=== PATIENT | female | born 1985 | race Caucasian/White ===

== ENCOUNTER 2018-08-09 19:21 | Observation (INO) | payer MEDICAID ==
[~2018-08-09] VITALS: Ht 162.6 cm; Wt 92.3 kg
[2018-08-09] MEDS ORDERED: SYNTHROID25 MCG PO (19:32)
[2018-08-09] MEDS ORDERED: PROZAC40 MG PO (19:33)
[2018-08-09] MEDS ORDERED: PRAVACHOL20 MG PO (19:33)
[2018-08-09] MEDS ORDERED: POLY HIST FORTE PO (19:33)
[2018-08-09] MEDS ORDERED: PERCOCET 5-3251 TAB PO (19:34)
[2018-08-09] MEDS ORDERED: PHENERGAN12.5 MG RC (19:34)
[2018-08-09] MEDS ORDERED: AMOXICILLIN875 MG PO (19:34)
[2018-08-09] MEDS ORDERED: BACLOFEN20 M1 PO (19:35)
[2018-08-09] MEDS ORDERED: VITAMIN D2000 UNIT PO (19:35)
[2018-08-09] MEDS ORDERED: AMBIEN CR 6.26.25 MG PO (19:35)
[2018-08-09] MEDS ORDERED: NEURONTIN 300300 MG PO (19:36)
[2018-08-09] MEDS ORDERED: SEROQUEL50 MG PO (19:36)
[2018-08-09 20:12] LABS: BASOPHILS 0.1 % (0-2); EOSINOPHILS 2.5 % (0-7); HEMATOCRIT 42.5 % (36.0-48.0); HEMOGLOBIN 14.2 g/dL (12-16); IMMATURE GRANULOCYTES 0.2 % (0-5); LYMPHOCYTES 7.5 % (15-50); MCHC 33.4 g/dL (31.0-37.0); MCV 86.9 fL (80.0-100.0); MEAN PLATELET VOLUME 9.2 fL (7.4-10.4); MONOCYTES 5.9 % (2-11); NEUTROPHILS 83.8 % (40-80); PLATELET COUNT 348 10x3/uL (130-400); RBC 4.89 10x6/uL (4.00-5.40); RDW 14.4 % (11.5-14.5); WBC 16.3 10x3/uL (4.8-10.8)
[2018-08-09 20:20] LABS: APPEARANCE CLEAR (CLEAR); COLOR YELLOW (YELLOW)
[2018-08-09 20:21] LABS: BILIRUBIN NEGATIVE (NEGATIVE); GLUCOSE NEGATIVE (NEGATIVE); KETONE NEGATIVE (NEGATIVE); NITRITE NEGATIVE (NEGATIVE); PROTEIN TRACE mg/dL (NEGATIVE); UROBILINOGEN NORMAL (NORMAL)
[2018-08-09 20:23] LABS: BACTERIA FEW /hpf (NONE SEEN); RED CELLS - URINE 0-5 /hpf (0-5); WHITE CELLS - URINE OCC /hpf (0-5)
[2018-08-09 20:26] LABS: ALBUMIN 3.6 g/dL (3.4-5.0); ALKALINE PHOSPHATASE 132 U/L (46-116); ALT (SGPT) 40 U/L (10-68); AMYLASE - SERUM 41 U/L (25-115); CALC OSMOLALITY 275 mosm/kg (275-300); CALCIUM 8.8 mg/dL (8.5-10.1); CARBON DIOXIDE 23.1 mmol/L (21.0-32.0); CHLORIDE - SERUM 103 mmol/L (98-107); CREATININE - SERUM 0.7 mg/dL (0.6-1.3); GLUCOSE 98 mg/dL (74-106); LIPASE 129 U/L (73-393); POTASSIUM - SERUM 3.5 mmol/L (3.5-5.1); PROTEIN - SERUM 7.7 g/dL (6.4-8.2); SODIUM 138 mmol/L (136-145); UREA NITROGEN 13 mg/dL (7-18); eGFR NON AFRICAN AMERICAN > 90 mL/min (90-120)
[2018-08-10 01:22] VITALS: BP 127/91; BMI 35.4
--- NOTE | 2018-08-10 01:24 | NUR ---
PT TO THE FLOOR VIA WHEELCHAIR. PT STATES FEELING A LITTLE BETTER AND THAT SHE HAS A DISABLED CHILD SHE WOULD LIKE TO GET HOME TO. PT HOPING SHE CAN HAVE HER EGD DONE SOONER RATHER THEN LATER. PT STATES NO OTHER NEEDS AT THIS TIME, CALL LIGHT WITHIN REACH AND BED IN LOWEST POSITION.
--- NOTE | 2018-08-10 01:41 | NUR ---
I have reviewed this patient and I concur with the Shift Assessment completed by the Licensed Practical Nurse today this shift.
--- NOTE | 2018-08-10 07:20 | NUR ---
PT IS AWAKE AND ORIENTED. QUESTIONS WHEN THE DOCTOR WILL BE HERE. PT HAS BAD HABBIT OF UNDOING HER OWN IV DESPITE BEING EDUCATED TO NOT DO SO. OTHERWISE PLESANT. CL IN REACH, SRX2. NO COMPLAINTS/CONCERNS AT THIS TIME.
[2018-08-10 08:53] VITALS: BP 84/43
[2018-08-10 11:48] VITALS: Ht 162.6 cm; Wt 92.3 kg
--- NOTE | 2018-08-10 13:03 | NUR ---
I have reviewed this patient and I concur with the Shift Assessment completed by the Licensed Practical Nurse today this shift.
[2018-08-10 13:11] VITALS: BP 119/83
--- NOTE | 2018-08-10 14:29 | NUR ---
PTREFUSED SCDS. PT IS UP AD ALEK WITHOUT DIFFICULTY.
[2018-08-10 16:45] VITALS: BP 100/51
--- NOTE | 2018-08-10 18:05 | NUR ---
PT ASLEEP, DID NOT WAKE I ENTERED. DID NOT FURTHER DISTURB AT THIS TIME. PT HAS BEEN ANXIOUS AND WAITING FOR STOOL RESULTS (NOT YET IN). STATES SHE HASN'T SLEPT WELL AND NEEDS TO GET MORE REST, IS HOPING NIGHT TIME WILL ASSIST.
--- NOTE | 2018-08-10 19:35 | NUR ---
EVENING ROUNDS COMPLETED. REPORT RECEIVED. PT LYING IN BED WITH EYES OPEN, RR EVEN AND UNLABORED. PT ANSWERS QUESTIONS APPROPRIATELY. NO S/S OF DISTRESS. INTRODUCED SELF TO PT. PT DENIES FURTHER NEEDS AT THIS TIME. BED IN LOW POSITION. CALL LIGHT IN REACH. WILL CTM.
[2018-08-10 20:00] VITALS: BP 128/53
--- NOTE | 2018-08-10 21:44 | NUR ---
ADMINISTERED ORDERED ANALGESIC FOR PT COMPLAINTS OF PAIN IN BACK AND ABDOMEN. PT STATES PAIN OF A 7 ON A SCALE OF 0-10.
--- NOTE | 2018-08-11 00:19 | NUR ---
I have reviewed this patient and I concur with the Shift Assessment completed by the Licensed Practical Nurse today this shift.
[2018-08-11 00:30] VITALS: BP 130/62
[2018-08-11 03:52] LABS: BASOPHILS 0.1 % (0-2); EOSINOPHILS 11.4 % (0-7); HEMATOCRIT 40.1 % (36.0-48.0); IMMATURE GRANULOCYTES 0.1 % (0-5); LYMPHOCYTES 33.3 % (15-50); MCH 28.8 pg (26.0-34.0); MCHC 32.4 g/dL (31.0-37.0); MCV 88.7 fL (80.0-100.0); MEAN PLATELET VOLUME 9.3 fL (7.4-10.4); NEUTROPHILS 44.1 % (40-80); PLATELET COUNT 303 10x3/uL (130-400); RBC 4.52 10x6/uL (4.00-5.40); RDW 14.6 % (11.5-14.5); WBC 7.8 10x3/uL (4.8-10.8)
[2018-08-11 04:06] LABS: ALBUMIN 3.2 g/dL (3.4-5.0); ALKALINE PHOSPHATASE 114 U/L (46-116); ALT (SGPT) 41 U/L (10-68); CALC OSMOLALITY 285 mosm/kg (275-300); CALCIUM 8.4 mg/dL (8.5-10.1); CARBON DIOXIDE 26.4 mmol/L (21.0-32.0); CHLORIDE - SERUM 107 mmol/L (98-107); CREATININE - SERUM 0.7 mg/dL (0.6-1.3); GLUCOSE 103 mg/dL (74-106); MAGNESIUM - SERUM 2.3 mg/dL (1.8-2.4); PROTEIN - SERUM 6.8 g/dL (6.4-8.2); SODIUM 143 mmol/L (136-145); UREA NITROGEN 14 mg/dL (7-18); eGFR NON AFRICAN AMERICAN > 90 mL/min (90-120)
[2018-08-11 04:07] LABS: POTASSIUM - SERUM 4.2 mmol/L (3.5-5.1)
[2018-08-11 04:30] VITALS: BP 123/58
--- NOTE | 2018-08-11 07:01 | NUR ---
PT AWAKE/ALERT/ORIENTED. STATES SHE SLEPT BETTER LAST NIGHT AND ISNT FEELING TOO BAD THIS MORNING. NO OTHER COMPLAINTS/CONCERNS/QUESTIONS OR COMMENTS AT THIS TIME. CL SWETHA, SRX2.
[2018-08-11 08:07] VITALS: BP 138/75
[2018-08-11] MEDS ORDERED: LEVOFLOXACIN500 MG PO (10:09)
[2018-08-11] MEDS ORDERED: FLAGYL500 MG PO (10:09)
--- NOTE | 2018-08-11 11:38 | NUR ---
PT AMBULATED OUT, OFFERED WHEELCAHIR, PT REFUSED STATING SHE WANTS TO HURRY UP AND LEAVE. NO COMPLAINTS OR CONCERNS.
--- NOTE | 2018-08-11 15:08 | NUR ---
I have reviewed this patient and I concur with the Shift Assessment completed by the Licensed Practical Nurse today this shift.
--- NOTE | 2018-08-12 07:44 | MORECARE ---
CASE MANAGEMENT DISCHARGE SUMMARY PATIENT: WES LOWE UNIT: [id number] ADM DATE: 08/09/18 AGE: 32 : 81 SEX: F ROOM/BED: D.2102 AUTHOR: DONALD JOHNSON PHYSICIAN: REFERRING PHYSICIAN: HENRY ROBERTO MD DATE OF SERVICE: 08/12/18 Discharge Plan Patient Name: WES LOWE Facility: [facility]:[place] : 1985 Planned Disposition: Home Anticipated Discharge Date: 08/11/18 Discharge Date: 08/11/2018 Expected LOS: 2 Initial Reviewer: [email or web address] Initial Review Date: 08/12/2018 Generated: 08/12/18 8:44 am Patient Name: WES LOWE Page [id number] at 0744 All edits/amendments must be made on the electronic document DICTATION DATE: 08/12/1844 JUSTICE PROFESSOR: DERIK 08/12/18 0744 RPT#: [id number] DC DATE:08/11/18 STATUS: DIS IN [facility] [address] [place] [address] END OF REPORT
== END 2018-08-11 11:38 | disposition home or self-care (01) ==
LOC: D.ER 19:21 → D.M2 23:42 → OBSVTIME 23:42 → D.M2 08-10 00:18
PROVIDERS: Emergency Medicine; Family Medicine; ADMIT Emergency Medicine; ATTEND Emergency Medicine
DX: K52.9 Noninfective gastroenteritis and colitis, unspecified (principal); E03.9 Hypothyroidism, unspecified; K21.9 Gastro-esophageal reflux disease without esophagitis; Z72.0 Tobacco use; F12.90 Cannabis use, unspecified, uncomplicated; K57.90 Diverticulosis of intestine, part unspecified, without perforation or abscess without bleeding; Z98.84 Bariatric surgery status

== ENCOUNTER 2018-12-08 21:28 | Inpatient (IN) | payer MEDICAID ==
[~2018-12-08] VITALS: Ht 162.6 cm; Wt 103.4 kg
[~2018-12-08 21:28] MED LIST: AMBIEN CR 6.26.25 MG PO; AMOXICILLIN875 MG PO; BACLOFEN20 M1 PO; FLAGYL500 MG PO; LEVOFLOXACIN500 MG PO; NEURONTIN 300300 MG PO; PERCOCET 5-3251 TAB PO; PHENERGAN12.5 MG RC; POLY HIST FORTE PO; PRAVACHOL20 MG PO; PROZAC40 MG PO; SEROQUEL50 MG PO; SYNTHROID25 MCG PO; VITAMIN D2000 UNIT PO
[2018-12-08 22:03] LABS: HEMOGLOBIN 14.3 g/dL (12-16); LYMPHOCYTES 8.8 % (15-50); MCH 27.6 pg (26.0-34.0); MCHC 32.5 g/dL (31.0-37.0); MCV 84.8 fL (80.0-100.0); MEAN PLATELET VOLUME 9.1 fL (7.4-10.4); NEUTROPHILS 82.5 % (40-80); RBC 5.19 10x6/uL (4.00-5.40); RDW 14.7 % (11.5-14.5); WBC 19.3 10x3/uL (4.8-10.8)
[2018-12-08 22:04] LABS: PLATELET COUNT 375 10x3/uL (130-400)
[2018-12-08 22:04] LABS: APPEARANCE CLOUDY (CLEAR); BILIRUBIN NEGATIVE (NEGATIVE); COLOR DK YELLOW (YELLOW); GLUCOSE NEGATIVE (NEGATIVE); KETONE NEGATIVE (NEGATIVE); NITRITE NEGATIVE (NEGATIVE); PROTEIN 2+ mg/dL (NEGATIVE); UROBILINOGEN NORMAL (NORMAL)
[2018-12-08 22:05] LABS: BACTERIA MODERATE /hpf (NONE SEEN); RED CELLS - URINE 0-5 /hpf (0-5); WHITE CELLS - URINE 0-5 /hpf (0-5)
[2018-12-08 22:06] LABS: HCG URINE NEGATIVE (NEGATIVE)
[2018-12-08 22:11] LABS: ALBUMIN 3.5 g/dL (3.4-5.0); ALKALINE PHOSPHATASE 147 U/L (46-116); ALT (SGPT) 19 U/L (10-68); BILIRUBIN - TOTAL 0.31 mg/dL (0.2-1.3); CALC OSMOLALITY 276 mosm/kg (275-300); CALCIUM 8.8 mg/dL (8.5-10.1); CARBON DIOXIDE 25.3 mmol/L (21.0-32.0); CHLORIDE - SERUM 102 mmol/L (98-107); CREATININE - SERUM 0.9 mg/dL (0.6-1.3); GLUCOSE 134 mg/dL (74-106); POTASSIUM - SERUM 3.5 mmol/L (3.5-5.1); PROTEIN - SERUM 7.8 g/dL (6.4-8.2); SODIUM 137 mmol/L (136-145); UREA NITROGEN 15 mg/dL (7-18); eGFR NON AFRICAN AMERICAN 75 mL/min (90-120)
[2018-12-08 22:14] LABS: AMYLASE - SERUM 33 U/L (25-115); LIPASE 95 U/L (73-393); TROPONIN-I < 0.017 ng/mL (0.000-0.060)
[2018-12-09] MEDS ORDERED: ALBUTEROL SULF8.5 GM INH (01:54)
[2018-12-09] MEDS ORDERED: PHENERGAN25 M1 PO (01:57)
--- NOTE | 2018-12-09 02:00 | NUR ---
RECEIVED REPORT FROM ER, PT ARRIVED VIA BED, A&O X4, MEDS AND HISTORY COMPLETE, PLACED ON TELEMTRY-SR, DENIES ANY NEEDS, BED IS LOW, SRX1, CALL LIGHT IN REACH, WILL CONTINUE PLAN OF CARE
--- NOTE | 2018-12-09 02:36 | NUR ---
ADMIT TO ROOM 2129 FROM ER. ALERT/ORIENTED. IV ABT X 2 COMPLETING UPON ARRIVAL TO FLOOR. ADMISSION ASSESSMENT AND HISTORY COMPLETED. HOME MEDS REVIEWED AND UPDATED. PLAN OF CARE INITIATED AT THIS TIME.
[2018-12-09 02:39] VITALS: BP 130/82; BMI 39.2
[2018-12-09 04:15] VITALS: BP 103/46
--- NOTE | 2018-12-09 06:50 | NUR ---
I have reviewed this patient and I concur with the Shift Assessment completed by the Licensed Practical Nurse today this shift.
--- NOTE | 2018-12-09 07:04 | NUR ---
PT RESTING PEACEFULLY, BREATHS EVEN, REGULAR, AND UNLABORED. NO SIGNS OR SYMPTOMS OF ACUTE DISTRESS NOTED AT THIS TIME. DID NOT FURTHER DISTURB AT THIS TIME. NO FAMILY AT BEDSIDE. CL IN REACH, SRX2.
[2018-12-09 08:14] VITALS: BP 107/53
[2018-12-09 11:17] VITALS: BP 87/43
--- NOTE | 2018-12-09 11:29 | NUR ---
PT B/P TRENDING DOWN ALL DAY, TOOK MANUAL (80/50). GIVING 500ML BOLUS PER [employer] ORDERS.
--- NOTE | 2018-12-09 12:02 | NUR ---
RATIONALE FOR SCD'S EXPLAINED. REFUSED SCD'S
[2018-12-09 12:54] LABS: INR 1.09 (0.85-1.17); PROTIME 13.6 SECONDS (11.6-15.0)
[2018-12-09 13:24] LABS: APTT 32.2 SECONDS (22.8-39.4)
[2018-12-09 13:46] VITALS: Ht 162.6 cm; Wt 103.4 kg
[2018-12-09 15:23] VITALS: BP 100/58
--- NOTE | 2018-12-09 19:00 | NUR ---
EVENING ROUNDS COMPLETE, PT SITTING UP IN BED, NO SIGNS OF DISTRESS. VSS, PT DENIES ANY PAIN AT THIS TIME. AAO X4. CL IN REACH, BED IN LOWEST POSITION. CONT WITH POC.
[2018-12-09 20:00] VITALS: BP 128/77
[2018-12-10] VITALS: BP 109/69
[2018-12-10 04:00] VITALS: BP 101/52
[2018-12-10 06:25] LABS: BASOPHILS 0.2 % (0-2); EOSINOPHILS 4.4 % (0-7); IMMATURE GRANULOCYTES 0.2 % (0-5); LYMPHOCYTES 28.1 % (15-50); MCH 26.9 pg (26.0-34.0); MCHC 31.9 g/dL (31.0-37.0); MCV 84.4 fL (80.0-100.0); MEAN PLATELET VOLUME 9.4 fL (7.4-10.4); MONOCYTES 12.2 % (2-11); NEUTROPHILS 54.9 % (40-80); RDW 15.6 % (11.5-14.5)
[2018-12-10 06:29] LABS: HEMOGLOBIN 10.2 g/dL (12-16); PLATELET COUNT 249 10x3/uL (130-400); RBC 3.79 10x6/uL (4.00-5.40); WBC 6.1 10x3/uL (4.8-10.8)
[2018-12-10 07:05] LABS: ALKALINE PHOSPHATASE 95 U/L (46-116); ALT (SGPT) 15 U/L (10-68); CALCIUM 7.3 mg/dL (8.5-10.1); CARBON DIOXIDE 25.7 mmol/L (21.0-32.0); CHLORIDE - SERUM 110 mmol/L (98-107); GLUCOSE 102 mg/dL (74-106); MAGNESIUM - SERUM 1.8 mg/dL (1.8-2.4); PHOSPHOROUS 2.8 mg/dL (2.5-4.9); POTASSIUM - SERUM 3.9 mmol/L (3.5-5.1); SODIUM 142 mmol/L (136-145)
[2018-12-10 07:08] LABS: CALC OSMOLALITY 280 mosm/kg (275-300); CREATININE - SERUM 0.6 mg/dL (0.6-1.3); UREA NITROGEN 6 mg/dL (7-18); eGFR NON AFRICAN AMERICAN > 90 mL/min (90-120)
[2018-12-10 07:09] LABS: ALBUMIN 2.2 g/dL (3.4-5.0); PROTEIN - SERUM 4.9 g/dL (6.4-8.2)
--- NOTE | 2018-12-10 07:51 | NUR ---
RECIEVED REPORT. RESTING IN BED WITH EYES CLOSED. RESPIRATIONS EVEN AND REGULAR. NO SIGNS OF DISTRESS. SINUS RHYTHM ON TELEMETRY. CONTINUE PLAN OF CARE AND SAFETY PRECAUTIONS.
[2018-12-10 08:39] VITALS: BP 103/54
[2018-12-10 11:34] VITALS: BP 112/59
[2018-12-10 15:42] VITALS: BP 148/86
--- NOTE | 2018-12-10 18:55 | NUR ---
EVENING ROUNDS COMPLETE, PT LAYING IN BED, NO SIGNS OF DISTRESS. AAO X4, DENIES PAIN AT THIS TIME. CL IN REACH, BED IN LOWEST POSITION. CONT WITH POC.
[2018-12-10 21:01] VITALS: BP 139/82
--- NOTE | 2018-12-10 22:00 | NUR ---
PT ASKED FOR PRN MORPHINE AND ZOFRAN. WHEN ENTERED ROOM TO ADMINISTER, PT ASKED NOT TO RECIEVE MEDICATION. WHEN ASKED PAIN LEVEL PT STATED "I TOOK MY MARIJUANA GUMMIES INSTEAD OF TAKING THE MORPHINE." EDUCATED PT ON THE IMPORTANCE OF NOT TAKING HOME MEDICATION WHILE IN THE HOSPITAL.
[2018-12-11] VITALS: BP 102/51
[2018-12-11 04:00] VITALS: BP 117/64
[2018-12-11 06:09] LABS: BASOPHILS 0.1 % (0-2); EOSINOPHILS 3.9 % (0-7); HEMATOCRIT 33.3 % (36.0-48.0); HEMOGLOBIN 10.6 g/dL (12-16); IMMATURE GRANULOCYTES 0.1 % (0-5); LYMPHOCYTES 22.2 % (15-50); MCH 26.8 pg (26.0-34.0); MCHC 31.8 g/dL (31.0-37.0); MCV 84.3 fL (80.0-100.0); MEAN PLATELET VOLUME 9.4 fL (7.4-10.4); MONOCYTES 11.4 % (2-11); NEUTROPHILS 62.3 % (40-80); PLATELET COUNT 288 10x3/uL (130-400); RBC 3.95 10x6/uL (4.00-5.40); RDW 15.6 % (11.5-14.5); WBC 6.7 10x3/uL (4.8-10.8)
[2018-12-11 06:47] LABS: ALBUMIN 2.4 g/dL (3.4-5.0); ALKALINE PHOSPHATASE 102 U/L (46-116); BILIRUBIN - TOTAL 0.12 mg/dL (0.2-1.3); CALC OSMOLALITY 287 mosm/kg (275-300); CALCIUM 7.8 mg/dL (8.5-10.1); CARBON DIOXIDE 26.1 mmol/L (21.0-32.0); CHLORIDE - SERUM 112 mmol/L (98-107); CREATININE - SERUM 0.7 mg/dL (0.6-1.3); GLUCOSE 124 mg/dL (74-106); MAGNESIUM - SERUM 2.1 mg/dL (1.8-2.4); POTASSIUM - SERUM 3.6 mmol/L (3.5-5.1); PROTEIN - SERUM 5.6 g/dL (6.4-8.2); SODIUM 145 mmol/L (136-145); UREA NITROGEN 6 mg/dL (7-18); eGFR NON AFRICAN AMERICAN > 90 mL/min (90-120)
[2018-12-11 06:48] LABS: ALT (SGPT) 20 U/L (10-68)
[2018-12-11 08:00] VITALS: BP 140/80
--- NOTE | 2018-12-11 08:36 | NUR ---
AM MEDS GIVEN AT THIS TIME. PT A/O X4, RESP EVEN AND NONLABORED ON RA. RT WRIST IV INFUSING NS AT 100CC/HR. MONITOR SHOWING SR WITH RATE OF 79. PT DENIES ANY NEEDS AT THIS TIME. CALL LIGHT IN REACH, NAD NOTED, WILL CONTINUE PLAN OF CARE.
--- NOTE | 2018-12-11 13:01 | NUR ---
Nutrition Follow-up: Good appetite/PO intake. No N/V. Reports stools remain loose with some relief from meds. C/o abd cramping. Per chart review, repeating celiac labs. Diet: Regular PO intake: 75-100% Wt: 228# Labs reviewed Meds reviewed May consider gluten-free diet if celiac dz suspected. RD following.
[2018-12-11] MEDS ORDERED: ZITHROMAX250 MG PO (14:28)
[2018-12-11] MEDS ORDERED: OMNICEF300 MG PO (14:29)
[2018-12-11] MEDS ORDERED: FLAGYL500 MG PO (14:30)
--- NOTE | 2018-12-11 16:33 | NUR ---
PROVIDED VERBAL AND WRITTEN DISCHARGE TEACHING TO PT, WHO VERBALIZED UNDERSTANDING REGARDING TEACHING. D/C RT WRIST IV WITH CATHETER TIP INTACT. PT REFUSED WHEELCHAIR. LEFT UNIT VIA AMBULATORY, WITH ALL BELONGINGS, NAD NOTED.
--- NOTE | 2018-12-11 17:02 | MORECARE ---
CASE MANAGEMENT DISCHARGE SUMMARY PATIENT: WES LOWE UNIT: [id number] ADM DATE: 12/09/18 AGE: 33 : 81 SEX: F ROOM/BED: D.0771 AUTHOR: ELIZABETH,DOC PHYSICIAN: REFERRING PHYSICIAN: KATHERINE WALKER MD DATE OF SERVICE: 12/11/18 Discharge Plan Patient Name: WES LOWE Facility: [facility]:[place] : 1985 Planned Disposition: Home Anticipated Discharge Date: 12/11/18 Discharge Date: 12/11/2018 Expected LOS: 2 Initial Reviewer: [email or web address] Initial Review Date: 12/11/2018 Generated: 12/11/18 6:02 pm Comments DCP- Discharge Planning Updated by [email or web address]: Emir Rowe on 12/11/18 4:[address] Patient Name: WES LOWE Admission Status: ER Accout number: [id number] Admission Date: 12-09-2018 : 1985 Admission Diagnosis:NAUSEA WITH VOMITING, UNSPECIFIED Attending: KATHERINE WALKER Current LOS: 2 Anticipated DC Date: 12-11-2018 Planned Disposition: Home Primary Insurance: [facility] [employer] Discharge Planning Comments: CM MET WITH PT IN ROOM TO DISCUSS DISCHARGE PLANNING AND NEEDS. PT REPORTS LIVING AT HOME INDEPENDENTLY WITH HER PARENTS AND PT'S DISABLED CHILD. PT HAS NO MEDICAL EQUIPMENT AND NO OUTSIDE SERVICES ASSISTING IN THE HOME. CM DISCUSSED AVAILABILITY OF HOME HEALTH, REHAB SERVICES AND MEDICAL EQUIPMENT. PT DENIES DISCHARGE NEEDS, REPORTS SHE IS DRIVING HERSELF HOME TODAY AT DISCHARGE. TOPOGRAPHICAL FIELD ASSISTANT NURSE NOTIFIED. Carpenter Assembler: Emir Rowe DCPIA - Discharge Planning Initial Assessment Updated by [email or web address]: Emir Rowe on 12/11/18 4:59 pm * Is the patient Alert and Oriented? Yes * How many steps to enter\exit or inside your home? * PCP DR. DECLAN ZHU IN [place] * Pharmacy [facility] IN [place] * Preadmission Environment Home with Family * ADLs Independent * Equipment None * Other Equipment [facility] IN [place] * List name and contact numbers for known caregivers / representatives who currently or will assist patient after discharge: CINDY GOETZ, MOTHER, * Verbal permission to speak to the caregivers and representatives has been obtained from the patient. N/A * Community resources currently utilized None * Please name any agencies selected above. NONE * Additional services required to return to the preadmission environment? No * Can the patient safely return to the preadmission environment? Yes * Has this patient been hospitalized within the prior 30 days at any hospital? No Patient Name: WES LOEW Page [id number] at 1702 All edits/amendments must be made on the electronic document DICTATION DATE: 12/11/181701 CREDIT RISK MANAGER: DERIK 12/11/181701 RPT#: [id number] DC DATE:12/11/18 STATUS: DIS IN [facility] [address] [place] [address] END OF REPORT
== END 2018-12-11 16:46 | disposition home or self-care (01) | DRG 372 ==
LOC: D.ER 21:28 → D.M2 12-09 00:39
PROVIDERS: Family Medicine; ADMIT Internal Medicine Nephrology; ATTEND Internal Medicine Nephrology
DX: A04.5 Campylobacter enteritis (principal); N39.0 Urinary tract infection, site not specified; F17.213 Nicotine dependence, cigarettes, with withdrawal; E03.9 Hypothyroidism, unspecified; K21.9 Gastro-esophageal reflux disease without esophagitis; F32.9 Major depressive disorder, single episode, unspecified